=== PATIENT | female | born 1980 | race Two or more races ===

== ENCOUNTER 2019-03-19 05:07 | Inpatient (IN) | payer BC, OTHER ==
[2019-03-15 15:22] VITALS: BMI 29.8
[2019-03-19] MEDS ORDERED: DEXAMETHASONE SOD PHOSPHATE/PF 10 MG/ML SDV ONE (07:22)
[2019-03-19] MEDS ORDERED: MIDAZOLAM HCL 2 MG/2 ML SINGLE DOSE VIAL ONE ×2 (07:23)
[2019-03-19] MEDS ORDERED: DEXMEDETOMIDINE HCL 200 MCG/2 ML IVPB ONE (07:25)
[2019-03-19] MEDS ORDERED: LIDOCAINE HCL 2% (20ML MULTI-DOSE VIAL) ONE (07:26)
[2019-03-19] MEDS ORDERED: KETAMINE HCL 200 MG/20 ML VIAL ONE (07:32)
[2019-03-19] MEDS ORDERED: ROCURONIUM BROMIDE 50 MG/5 ML SYRINGE ONE (07:32)
[2019-03-19] MEDS ORDERED: PROPOFOL 20 ML ONE ×3 (07:32→08:57)
[2019-03-19] MEDS ORDERED: SUCCINYLCHOLINE CHLORIDE 200 MG/10 ML SYRINGE ONE (07:32)
[2019-03-19] MEDS ORDERED: MAGNESIUM SULF 50% (8.12 MEQ/2 ML-1 GM VIAL) ONE (07:36)
[2019-03-19] MEDS ORDERED: KETOROLAC TROMETHAMINE 30 MG/1 ML VIAL ONE (07:43)
[2019-03-19] MEDS ORDERED: ceFAZolin SODIUM 1 GM VIAL ONE (07:43)
[2019-03-19] MEDS ORDERED: SODIUM CHLORIDE 0.9% P/F 10 ML VIAL IJ ONE (07:43)
[2019-03-19] MEDS ORDERED: LIDOCAINE HCL/PF 2% SDV 5ML VIAL ONE (07:43)
[2019-03-19] MEDS ORDERED: DEXAMETHASONE SOD PHOSPHATE 4 MG/1 ML VIAL ONE (07:43)
--- NOTE | 2019-03-19 07:50 | HP ---
Admitting History and Physical - Admission Chief Complaint: Abnormal uterine bleeding History of Present Illness: 38 yo Para 3 with one previous , is pre op for abdominal hysterectomy due to abnormal uterine bleeding. History Source: Patient Limitations to Obtaining History: No Limitations - Past Medical History ...LMP: 09/27/17 ...LMP Comment: 04/2018 ...: No ...Para: 3 - Past Surgical History Past Surgical History: Yes: - Smoking History Smoking history: Never smoked Have you smoked in the past 12 months: No - Alcohol/Substance Use Hx Alcohol Use: Yes (SOC) - Social History Usual Living Arrangement: Yes: With Significant Other History of Recent Travel: No Home Medications - Allergies Allergies/Adverse Reactions: Allergies Allergy/AdvReac Type Severity Reaction Status Date / Time ondansetron HCl [From Zofran] Allergy Severe TONGUE Verified 03/19/19 06:46 SWELLING Penicillins Allergy Intermediate Rash Verified 03/19/19 06:46 STERI-STRIPS Allergy Severe BLISTERS Uncoded 03/19/19 06:46 - Home Medications Home Medications: Ambulatory Orders Hydrochlorothiazide [Hctz -] 25 mg PO DAILY 03/15/19 Lisinopril 20 mg PO DAILY 03/15/19 Medroxyprogesterone Acetate [Depo-Provera] 150 mg IM UTDICT 03/19/19 Nifedipine ER [Procardia Xl -] 30 mg PO DAILY 03/19/19 Family Medical History Family History: Unremarkable Review of Systems - Review of Systems Constitutional: reports: No Symptoms Eyes: reports: No Symptoms HENT: reports: No Symptoms Neck: reports: No Symptoms Cardiovascular: reports: No Symptoms Respiratory: reports: No Symptoms Gastrointestinal: reports: No Symptoms Breasts: reports: No Symptoms Reported Musculoskeletal: reports: No Symptoms Neurological: reports: No Symptoms Endocrine: reports: No Symptoms Psychiatric: reports: No Symptoms Pain Intensity: 0 Physical Examination Vital Signs: Vital Signs Temperature 98.1 F 03/19/19 06:43 Pulse Rate 98 H 03/19/19 06:43 Respiratory Rate 20 03/19/19 06:43 Blood Pressure 103/80 03/19/19 06:43 O2 Sat by Pulse Oximetry (%) 99 03/19/19 06:42 Constitutional: Yes: Well Nourished Eyes: Yes: Conjunctiva Clear HENT: Yes: Atraumatic Neck: Yes: Supple Cardiovascular: Yes: Regular Rate and Rhythm Respiratory: Yes: Regular Gastrointestinal: Yes: Normal Bowel Sounds Musculoskeletal: Yes: WNL Extremities: Yes: WNL Neurological: Yes: Alert, Oriented ...Motor Strength: WNL Psychiatric: Yes: Alert, Oriented Assessment/Plan Menorrhagia Pre op for abdominal hysterectomy Consent signed Anesthesia to see patient
--- NOTE | 2019-03-19 07:56 | PN ---
Progress Note (short form) - Note Progress Note: I assisted Dr. Metz for the entirety of the case.
[2019-03-19] MEDS ORDERED: ceFAZolin SODIUM 1 GM VIAL IVPB ONE (08:10)
[2019-03-19] MEDS ORDERED: NEOSTIGMINE METHYLSULFATE 0.5 MG/ML - 10 ML MDV ONE (09:05)
[2019-03-19] MEDS ORDERED: GLYCOPYRROLATE 0.2 MG/1 ML VIAL ONE (09:05)
[2019-03-19] MEDS ORDERED: EPHEDRINE SULFATE/0.9% NACL/PF 50 MG/10 ML SYRINGE NR ONE (09:10)
[2019-03-19] MEDS ORDERED: oxyCODONE HCL 5 MG TABLET PO PRN ×2 (09:22→11:26)
--- NOTE | 2019-03-19 09:25 | OP ---
Operative Note - Note: Operative Date: 03/19/19 Pre-Operative Diagnosis: Menorrhagia Operation: Subtotal hysterectomy and bilateral salpingectomy Findings: Small uterus Post-Operative Diagnosis: Same as Pre-op Surgeon: Haleigh Veronica Configuration Manager: Gab Nava Anesthesia: General Specimens Removed: Uterus / Tubes Estimated Blood Loss (mls): 100
[2019-03-19] MEDS ORDERED: CEFAZOLIN 1 GM/D5W 1 GM/50 ML BAG IVPB SCH (10:00)
[2019-03-19] MEDS ORDERED: FAMOTIDINE 20 MG/50 ML IVPB 20 MG/50 ML MG IVPB ONE ×2 (10:58→11:28)
[2019-03-19] MEDS ORDERED: FAMOTIDINE 20 MG PREMIXED IVPB IVPB ONE (11:00)
[2019-03-19] MEDS ORDERED: NALOXONE HCL 0.4 MG/ML VIAL IVPUSH PRN (11:24)
[2019-03-19] MEDS ORDERED: DOCUSATE SODIUM 100 MG CAPSULE (FP) PO PRN (11:24)
[2019-03-19] MEDS ORDERED: LACTATED RINGERS SOLUTION 1,000 ML IV SCH (11:30)
[2019-03-19] MEDS ORDERED: ACETAMINOPHEN INJECTION 100 ML IVPB ONE (12:00)
[2019-03-19] MEDS: ACETAMINOPHEN 1000 MG/100 ML VIAL (NON FORMULARY) IVPB SCH ×3 (12:03→23:08)
[2019-03-19] MEDS: DEXTROSE 5%-LACTATED RINGERS 1,000 ML IV SCH ×2 (13:15→23:08)
[2019-03-19] MEDS: IBUPROFEN 800 MG/8 ML IJ IVPB PRN (14:41)
[2019-03-19] MEDS: MORPHINE SULFATE 2 MG/ML VIAL IVPUSH PRN ×2 (15:16→21:59)
[2019-03-19] MEDS: CEFAZOLIN 1 GM/D5W 1 GM/50 ML BAG IVPB SCH (18:08)
[2019-03-20] MEDS: CEFAZOLIN 1 GM/D5W 1 GM/50 ML BAG IVPB SCH (01:39)
[2019-03-20] MEDS: ACETAMINOPHEN 1000 MG/100 ML VIAL (NON FORMULARY) IVPB SCH (05:23)
[2019-03-20] MEDS: MORPHINE SULFATE 2 MG/ML VIAL IVPUSH PRN (05:41)
[2019-03-20] MEDS: DEXTROSE 5%-LACTATED RINGERS 1,000 ML IV SCH (09:30)
[2019-03-20] MEDS: IBUPROFEN 800 MG/8 ML IJ IVPB PRN (12:09)
[2019-03-20] MEDS: SIMETHICONE 80 MG TAB.CHEW (FP) PO PRN ×2 (17:38→21:37)
[2019-03-20] MEDS: oxyCODONE HCL 5 MG TABLET PO PRN ×2 (17:38→21:37)
[2019-03-20] MEDS ORDERED: BISACODYL 10 MG SUPP.RECT RC ONE (20:13)
--- NOTE | 2019-03-20 20:19 | PN ---
Progress Note, Physician Chief Complaint: Post op History of Present Illness: 38 yo status post subtotal hysterectomy, seen and evaluated. She c/o abdominal and incision pain. She has not passed any gas below despite ambulation. - Current Medication List Current Medications: Active Medications Docusate Sodium (Colace -) 100 mg PO BID PRN PRN Reason: CONSTIPATION Dextrose/Lactated Ringer's (D5-Lr -) 1,000 mls @ 125 mls/hr IV ASDIR MOE Last Admin: 03/20/19 09:30 Dose: 125 mls/hr Ibuprofen (Caldolor Injection -) 800 mg IVPB Q8H PRN PRN Reason: FEVER Last Admin: 03/20/19 12:09 Dose: 800 mg Morphine Sulfate (Morphine Sulfate) 2 mg IVPUSH Q4H PRN PRN Reason: PAIN LEVEL 7 - 10 Last Admin: 03/20/19 05:41 Dose: 2 mg Oxycodone HCl (Roxicodone -) 5 mg PO Q4H PRN PRN Reason: PAIN LEVEL 1 - 3 Last Admin: 03/20/19 17:38 Dose: 5 mg Oxycodone HCl (Roxicodone -) 10 mg PO Q4H PRN PRN Reason: PAIN LEVEL 4 - 6 Last Admin: 03/20/19 10:47 Dose: 10 mg Simethicone (Mylicon -) 80 mg PO Q4H PRN PRN Reason: GAS Last Admin: 03/20/19 17:38 Dose: 80 mg - Objective Vital Signs: Vital Signs Temperature 98.5 F 03/20/19 18:00 Pulse Rate 86 03/20/19 18:00 Respiratory Rate 18 03/20/19 18:00 Blood Pressure 108/60 03/20/19 18:00 O2 Sat by Pulse Oximetry (%) 98 03/19/19 13:30 Constitutional: No: No Distress Eyes: Yes: Conjunctiva Clear HENT: Yes: Atraumatic Neck: Yes: Supple Cardiovascular: Yes: Regular Rate and Rhythm Respiratory: Yes: Regular Gastrointestinal: Yes: Normal Bowel Sounds ...Rectal Exam: Yes: WNL Genitourinary: No: Vaginal Bleeding Breast(s): Yes: WNL Musculoskeletal: Yes: WNL Extremities: Yes: WNL Wound/Incision: Yes: Dressing Dry and Intact Neurological: Yes: Alert, Oriented Psychiatric: Yes: Alert, Oriented Problem List - Problems (1) Status post abdominal hysterectomy Problems reviewed: Yes Code(s): Z90.710 - ACQUIRED ABSENCE OF BOTH CERVIX AND UTERUS Assessment/Plan Status post hysterectomy Abdominal pain Continue ambulation Bisacodyl suppository F/U Labs Consider abdominal x-ray in am
[2019-03-20 21:41] LABS: BASO % 0.1 % (0-2.0); EOS % 0.2 % (0-4.5); HEMOGLOBIN 10.4 GM/dL (10.7-15.3); MCH 29.2 pg (25.7-33.7); MCHC 33.6 g/dl (32.0-36.0); MEAN CELL VOLUME 86.9 fl (80-96); MEAN PLT VOLUME 11.1 fl (7.5-11.1); MONO % 10.4 % (3.8-10.2); NEUT % 72.3 % (42.8-82.8); PLATELET COUNT 133 K/MM3 (134-434); RBC 3.56 M/mm3 (3.60-5.2); RDW 13.4 % (11.6-15.6)
[2019-03-20 21:44] LABS: BLOOD UREA NITROGEN 8.2 mg/dL (7-18); CALCIUM 8.4 mg/dL (8.5-10.1); CREATININE 0.6 mg/dL (0.55-1.3); POTASSIUM 3.5 mmol/L (3.5-5.1)
[2019-03-21] MEDS: oxyCODONE HCL 5 MG TABLET PO PRN (02:41)
[2019-03-21] MEDS: SIMETHICONE 80 MG TAB.CHEW (FP) PO PRN (02:43)
--- NOTE | 2019-03-21 07:24 | PN ---
Progress Note, Physician Chief Complaint: Post op History of Present Illness: 38 yo status post subtotal hysterectomy, seen and evaluated. She continues to c/o feeling bloated. She admits to passing gas after Bisacodyl suppository. She's ambulating. - Current Medication List Current Medications: Active Medications Docusate Sodium (Colace -) 100 mg PO BID PRN PRN Reason: CONSTIPATION Last Admin: 03/20/19 21:37 Dose: 100 mg Dextrose/Lactated Ringer's (D5-Lr -) 1,000 mls @ 125 mls/hr IV ASDIR MOE Last Admin: 03/20/19 09:30 Dose: 125 mls/hr Ibuprofen (Caldolor Injection -) 800 mg IVPB Q8H PRN PRN Reason: FEVER Last Admin: 03/20/19 12:09 Dose: 800 mg Morphine Sulfate (Morphine Sulfate) 2 mg IVPUSH Q4H PRN PRN Reason: PAIN LEVEL 7 - 10 Last Admin: 03/20/19 05:41 Dose: 2 mg Oxycodone HCl (Roxicodone -) 5 mg PO Q4H PRN PRN Reason: PAIN LEVEL 1 - 3 Last Admin: 03/21/19 02:41 Dose: 5 mg Oxycodone HCl (Roxicodone -) 10 mg PO Q4H PRN PRN Reason: PAIN LEVEL 4 - 6 Last Admin: 03/20/19 10:47 Dose: 10 mg Simethicone (Mylicon -) 80 mg PO Q4H PRN PRN Reason: GAS Last Admin: 03/21/19 02:43 Dose: 80 mg - Objective Vital Signs: Vital Signs Temperature 98.4 F 03/21/19 02:00 Pulse Rate 101 H 03/21/19 02:00 Respiratory Rate 20 03/21/19 02:00 Blood Pressure 115/78 03/21/19 02:00 O2 Sat by Pulse Oximetry (%) 97 03/20/19 21:30 Constitutional: Yes: No Distress Eyes: Yes: Conjunctiva Clear HENT: Yes: Atraumatic Neck: Yes: Supple Cardiovascular: Yes: Regular Rate and Rhythm Respiratory: Yes: Regular Gastrointestinal: Yes: Normal Bowel Sounds Genitourinary: No: Vaginal Bleeding Breast(s): Yes: WNL Musculoskeletal: Yes: WNL Extremities: Yes: WNL Wound/Incision: Yes: Well Approximated, Lora Intact Neurological: Yes: Alert, Oriented ...Motor Strength: WNL Psychiatric: Yes: Alert, Oriented Labs: CBC, BMP 03/20/19 21:00 03/20/19 21:00 Problem List - Problems (1) Status post abdominal hysterectomy Problems reviewed: Yes Code(s): Z90.710 - ACQUIRED ABSENCE OF BOTH CERVIX AND UTERUS Assessment/Plan Status post hysterectomy Abdominal pain Continue ambulation F/U Abdominal XRAY Continue Simethecone
[2019-03-21] MEDS ORDERED: ACETAMINOPHEN 325 MG TABLET (FP) PO PRN (07:25)
[2019-03-21] MEDS ORDERED: IBUPROFEN 600 MG TABLET (FP) PO PRN (07:25)
--- NOTE | 2019-03-21 07:34 | DS ---
Physical Examination Vital Signs: Vital Signs Temperature 98.4 F 03/21/19 02:00 Pulse Rate 101 H 03/21/19 02:00 Respiratory Rate 03/21/19 02:00 Blood Pressure 115/78 03/21/19 02:00 O2 Sat by Pulse Oximetry (%) 97 03/20/19 21:30 Constitutional: No: No Distress Eyes: Yes: Conjunctiva Clear HENT: Yes: Atraumatic Neck: Yes: Supple Cardiovascular: Yes: Regular Rate and Rhythm Respiratory: Yes: Regular Gastrointestinal: Yes: Normal Bowel Sounds Musculoskeletal: Yes: WNL Wound/Incision: Yes: Lora Intact Neurological: Yes: Alert, Oriented ...Motor Strength: WNL Psychiatric: Yes: Alert, Oriented Labs: CBC, BMP 03/20/19 21:00 03/20/19 21:00 Discharge Summary Problems reviewed: Yes Reason For Visit: MONORRHAGIA Current Active Problems Status post abdominal hysterectomy (Acute) Procedures: Principal: Subtotal hysterectomy Hospital Course: Patient admitted for post op care. No blood transfusion required. She experienced bloated abdomen for which an XRAY was ordered. Health Concerns: Thromboembolic event Post op ileus. Plan of Treatment: Ambulation Analgesia as needed F/U with MD in 2 weeks Goals: Resume regular activities in 3-4 weeks Condition: Fair - Instructions Diet, Activity, Other Instructions: Regular diet No driving, no lifting x 4 weeks F/U with MD in 2 weeks Disposition: HOME - Home Medications Comprehensive Discharge Medication List: Ambulatory Orders Hydrochlorothiazide [Hctz -] 25 mg PO DAILY 03/15/19 Lisinopril 20 mg PO DAILY 03/15/19 Medroxyprogesterone Acetate [Depo-Provera] 150 mg IM UTDICT 03/19/19 Nifedipine ER [Procardia Xl -] 30 mg PO DAILY 03/19/19 Ibuprofen [Motrin -] 600 mg PO Q4H PRN 20 Days #60 tablet 03/21/19 Oxycodone HCl/Acetaminophen [Percocet 5-325 mg Tablet] 1 tab PO Q4H #20 tablet MDD 20 03/21/19
[2019-03-21 09:13] VITALS: BP 124/76; PULSE 87; TEMP 99.1
--- NOTE | 2019-03-21 18:41 | PATH ---
Surgical Pathology Report Patient Name: CRISTINA SLADE [facility]. Rec. 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 Specimen(s) Received A: RIGHT FALLOPIAN TUBE B: LEFT FALLOPIAN TUBE C: UTERUS D: KELOID Clinical History Menorrhagia Final Diagnosis A. FALLOPIAN TUBE, RIGHT, SALPINGECTOMY: FALLOPIAN TUBE WITH ENDOSALPINGOSIS AND WALTHARD NEST CYST (INCLUDING FIMBRIATED END AND FULL LUMINAL PORTION). B. FALLOPIAN TUBE, LEFT, SALPINGECTOMY: FALLOPIAN TUBE WITH ENDOSALPINGOSIS (INCLUDING FIMBRIATED END AND FULL LUMINAL PORTION). C. UTERUS, ABDOMINAL SUBTOTAL HYSTERECTOMY: 101 G UTERUS. LEIOMYOMA(TA), INTRAMURAL. SCANT BASALIS ENDOMETRIUM. MYOMETRIUM WITH FOCAL ADENOMYOSIS. PORTION OF ENDOCERVIX WITHOUT SIGNIFICANT PATHOLOGIC FINDINGS. D. KELOID, EXCISION: SKIN WITH DERMAL FIBROSIS AND KELOIDAL TYPE COLLAGEN, CONSISTENT WITH KELOID. Electronically Signed Yenny Rm M.D. Gross Description A. Received in formalin labeled "right fallopian tube," is a 3 cm in length fimbriated fallopian tube. The outer surface is medley-alvarado and smooth. Sectioning reveals an unremarkable lumen. Joint Cutter Machine sections are submitted in 2 cassettes as follows: 1-fimbria; 2-cross sections of fallopian tube. B. Received in formalin labeled "left fallopian tube," is a 1.5 cm in length fimbriated fallopian tube. The outer surface is chung purple and smooth. Sectioning reveals an unremarkable lumen. Joint Cutter Machine sections are submitted in 2 cassettes as follows: 1-fimbria; 2-cross sections of fallopian tube. C. Received in formalin labeled "uterus," is a 101 g supracervically amputated uterus with no attached adnexa. The specimen measures 6.8 cm from superior to inferior, 6.5 cm from left to right and 5.0 cm from anterior to posterior. The serosa is medley-alvarado and smooth. The endometrial cavity measures 4.8 cm in length and 1.4 cm from cornu to cornu. The endometrium is medley and averages 0.1 cm in thickness. There are two intramural nodules present measuring 1.0 and 1.2 cm in greatest dimension. The nodules are medley and rubbery with whorled architecture. No areas of hemorrhage or necrosis are identified. The remaining myometrium is medley-pink and averages 2.5 cm in thickness. Joint Cutter Machine sections are submitted in 6 cassettes as follows: 1-cervical stump margin of resection; 7-6-hgqtrbnc endomyometrium; 2-5-azyjhcfkn endomyometrium; 6-intramural nodules. D. Received in formalin labeled "keloid," is a 4.5 x 2.3 cm medley, irregular, unoriented portion of skin excised to a depth of 2.2 cm. The epidermal surface displays a central scar. A quality control representative section is submitted in one cassette. 03/20/2019 [facility]03/20/2019
--- NOTE | 2019-03-30 10:31 | OP ---
DATE OF OPERATION: 03/19/2019 PREOPERATIVE DIAGNOSIS: Menorrhagia. POSTOPERATIVE DIAGNOSIS: Menorrhagia. PROCEDURE: Subtotal hysterectomy, bilateral salpingectomy. SURGEON: Haleigh Veronica MD DATA ANALYSIS INTERN: Gab Nava MD ANESTHESIA: General. COMPLICATIONS: None. ESTIMATED BLOOD LOSS: 100 mL. DESCRIPTION OF PROCEDURE: Patient was taken to the operating room where a general anesthesia was administered. Patient was then prepped and draped in proper sterile fashion. A Pfannenstiel skin incision was made approximately 2-cm above the pubic symphysis and extended sharply to the rectus fascia. The fascia was then incised bilaterally with the Bovie cautery, and then the muscles of the anterior abdominal wall were in the midline with blunt dissection. The peritoneum was then grasped between 2 pickups, elevated, and entered sharply with the Metzenbaum scissors. The pelvis was examined, then a small uterus was noted, and the bowel was packed with moist laparotomy sponges. The uterus was then exteriorized. Two pink clamps were placed on the cornua and used for retraction. The round ligament on both sides was clamped using the LigaSure device and burned and cut. The anterior leaf of the broad ligament was incised along the bladder reflection through the midline from both sides. The bladder was then gently dissected out of the lower uterine segment. Then, the cervix was a sponge stick. Then, the uteroovarian ligament on both sides was then clamped using the LigaSure device, burned, and cut. Hemostasis was assured. The uterine arteries were skeletonized bilaterally, clamped with the LigaSure device and burned and cut. Again, hemostasis was assured. The uterosacral ligaments were then also clamped on both sides and burned and cut. Then, the uterus was amputated using the Bovie cautery. The cervical os was closed with [id number] stitches of 0 Vicryl. The remainder of the cervical stump was closed in a series of interrupted 0 Vicryl [id number] sutures. Hemostasis was assured. The pelvis was then copiously irrigated with warm normal saline. All laparotomy sponges and instruments were removed from the abdomen. The fascia was closed with running 0 Vicryl, and the skin was closed with sarahi. Sponge, lap, needle, and instrument count were correct x2. The patient was taken to PACU awake and in stable condition. PATHOLOGY: Uterus and fallopian tubes. Mercedes MCFARLAND/[id number]
== END 2019-03-21 12:35 | disposition home or self-care (01) | DRG 743 ==
LOC: JSAMEDAYSX 05:07 → J3W 13:30
PROVIDERS: ADMIT Obstetrics & Gynecology; ATTEND Obstetrics & Gynecology
PROC: 0UT70ZZ Resection of Bilateral Fallopian Tubes, Open Approach (ICD-10-PCS; 2019-03-19)
PROC: 0UT90ZL Resection of Uterus, Supracervical, Open Approach (ICD-10-PCS; principal; 2019-03-19 07:30)
DX: N92.0 Excessive and frequent menstruation with regular cycle (principal); N93.9 Abnormal uterine and vaginal bleeding, unspecified
CPT/HCPCS: 36415; 74019-TC-FY; 80048; 84703; 85025; 86850; 86900; 86901; 88302-TC; 88304-TC; 88307-TC; 94760; J0131

== ENCOUNTER 2020-07-09 20:14 | Emergency (ER) | payer BC, OTHER ==
[2020-07-09 20:18] VITALS: TEMP 97.6; BMI 31.4
[2020-07-09 22:12] LABS: BASO % 0.6 % (0-2.0); EOS % 1.1 % (0-4.5); HEMATOCRIT 37.4 % (32.4-45.2); HEMOGLOBIN 12.7 GM/dL (10.7-15.3); LYMPH % 21.6 % (8-40); MEAN CELL VOLUME 88.4 fl (80-96); MONO % 6.7 % (3.8-10.2); PLATELET COUNT 197 K/MM3 (134-434); RBC 4.24 M/mm3 (3.60-5.2); WHITE BLOOD COUNT 5.9 K/mm3 (4.0-10.0)
[2020-07-09 22:27] LABS: INR 0.99 (0.83-1.09)
[2020-07-09 22:30] LABS: ACTIVATED PTT 30.5 SECONDS (25.2-36.5)
[2020-07-09 22:42] LABS: ALBUMIN 3.7 g/dl (3.4-5.0); BLOOD UREA NITROGEN 13.3 mg/dL (7-18); CALCIUM 9.1 mg/dL (8.5-10.1)
[2020-07-09 22:45] LABS: CREATININE 0.5 mg/dL (0.55-1.3)
[2020-07-09 22:47] LABS: BILIRUBIN,TOTAL 0.2 mg/dL (0.2-1); TOT PROT 6.5 g/dl (6.4-8.2)
[2020-07-09 23:48] VITALS: BP 155/95; PULSE 77
== END 2020-07-09 23:48 | disposition home or self-care (01) ==
LOC: JER 20:14
DX: K62.5 Hemorrhage of anus and rectum (principal)
CPT/HCPCS: 36415; 80053; 82272; 85025; 85610; 85730; 99283-25

== ENCOUNTER 2021-05-15 09:29 | Emergency (ER) | payer OTHER, BC ==
[2021-05-15 09:37] VITALS: BP 149/81; PULSE 78; TEMP 99.1; BMI 30.7
[2021-05-15] MEDS ORDERED: ACETAMINOPHEN 500 MG TABLET (FP) PO ONE (10:51)
[2021-05-15] MEDS ORDERED: KETOROLAC TROMETHAMINE 15 MG/ML VIAL IM ONE (10:51)
[2021-05-15] MEDS ORDERED: ACETAMINOPHEN 500 MG TABLET (FP) ONE (10:59)
[2021-05-15] MEDS ORDERED: KETOROLAC TROMETHAMINE 15 MG/ML VIAL ONE (10:59)
== END 2021-05-15 11:10 | disposition home or self-care (01) ==
LOC: FER 09:29
PROC: 3E023GC Introduction of Other Therapeutic Substance into Muscle, Percutaneous Approach (ICD-10-PCS; principal; 2021-05-15)
DX: M25.511 Pain in right shoulder (principal); V49.40XA Driver injured in collision with unspecified motor vehicles in traffic accident, initial encounter
CPT/HCPCS: 99284-25